=== PATIENT | female | born 1965 | race Caucasian/White ===

== ENCOUNTER 2023-08-03 04:38 | Day surgery (SDC) | payer BC ==
[2023-07-25 11:34] VITALS: BMI 25.3
[2023-08-03 07:18] VITALS: RESP 18
[2023-08-03 08:38] VITALS: TEMP 97.5
[2023-08-03 09:29] VITALS: BP 112/70; PULSE 73
== END 2023-08-03 09:29 | disposition home or self-care (01) ==
LOC: JASU-ENDO 04:38
PROVIDERS: ATTEND Internal Medicine Gastroenterology
PROC: 0DJD8ZZ Inspection of Lower Intestinal Tract, Via Natural or Artificial Opening Endoscopic (ICD-10-PCS; principal; 2023-08-03 08:00)
DX: Z12.11 Encounter for screening for malignant neoplasm of colon (principal); K59.89 Other specified functional intestinal disorders